=== PATIENT | female | born 1935 | race American Indian/Alaskan Native ===

== ENCOUNTER 2018-10-29 13:29 | Emergency (ER) | payer OTHER ==
--- NOTE | 2018-10-29 13:53 | PDOC ---
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 Patient's sister is at the bedside providing collateral history. About 1.5 years ago, patient was admitted to another hospital for UTI when a code was called as she had the sensation where she could not breathe. This instance was the first and only other time this has happened. The patient had a full workup including GI, and the cause was determined to be related to "something heart related." Denies recent medication changes. No airway swelling. Home health aide witnessed the event and noted patient was not in respiratory distress and did not look cyanotic. No vitals were taken at that time. Patient was laying in bed around 10am when it happened. Patient denies chest pain, nausea, or vomiting. She feels her symptom has improved but she does not feel back to normal. Denies medication allergies. Later on, patient reported that she felt somewhat weak today. Her home health aide and sister also state she seems weak. No fevers, chills, urinary symptoms, or abdominal pain. Past History - Past Medical History Allergies/Adverse Reactions: Allergies Allergy/AdvReac Type Severity Reaction Status Date / Time No Allergy Information Allergy Verified 10/29/18 14:03 Available Home Medications: Ambulatory Orders Aspirin 81 mg PO DAILY 02/12/16 Collagenase Clostridium Hist. [Santyl] 1 applic TP DAILY #90 applic 02/12/16 Levemir Vial 14 units SCJ HS 02/12/16 Metoprolol Succinate 1 tab PO DAILY 02/12/16 Plavix - 75 mg PO DAILY 02/12/16 Acetaminophen W/ Codeine #3 [Tylenol # 3 -] 1 tab PO Q6H #120 tablet MDD 4 05/06 Cephalexin [Keflex] 500 mg PO BID #13 capsule 10/29/18 Cardiac Disorders: Yes HTN: Yes Hypercholesterolemia: Yes - Surgical History Cardiac Surgery: Yes (3 vessel) - Suicide/Smoking/Psychosocial Hx Smoking History: Never smoked Review of Systems - Review of Systems Comments:: Constitutional: no fever, no chills HEENT: no dysphagia, no hemoptysis Cardiovascular: no chest pain, no palpitations Respiratory: no cough, +shortness of breath Gastrointestinal: no abdominal pain, no nausea Genitourinary: no dysuria, no frequency Musculoskeletal: no myalgia, no arthralgia Skin: no rash, no itching Neurologic: no headache, +weakness *Physical Exam - Physical Exam Comments: General: Awake, alert, and fully oriented, in no acute distress Head: No signs of trauma Eyes: EOMI, sclera anicteric ENT: Moist mucus membranes, no edema present, uvula midline, no foreign body or mass appreciated Neck: Normal ROM, supple Lungs: Lungs clear, Normal breath sounds Cardio: Regular rhythm, S1 and S2 present Abdomen: Soft, nontender Extremities: Normal range of motion, Distal pulses present SKIN: Warm, Dry, normal turgor Neurologic: Cranial nerves II through XII grossly intact. Normal speech, sensation, strength, coordination. Patient declined gait exam. 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 DDX including but not related to GERD, allergic reaction, angioedema, atypical presentation of cardiopulmonary disease, dysphagia from CVA No changes in foods recently No drug allergies Patient passed bedside sip test and has nonfocal neurologic exam Maalox/Pepcid/Viscous lidocaine 10/29/18 13:53 EKG: rate 60, QTc 454, NSR, no ST d/e CBC WBC 8.6 K/mm3 (4.0-10.0) 10/29/18 14:57 RBC 3.83 M/mm3 (3.60-5.2) 10/29/18 14:57 Hgb 10.7 GM/dL (10.7-15.3) 10/29/18 14:57 Hct 33.4 % (32.4-45.2) 10/29/18 14:57 MCV 87.3 fl (80-96) 10/29/18 14:57 MCH 27.8 pg (25.7-33.7) 10/29/18 14:57 MCHC 31.9 g/dl (32.0-36.0) L 10/29/18 14:57 RDW 16.0 % (11.6-15.6) H 10/29/18 14:57 Plt Count 242 K/MM3 (134-434) 10/29/18 14:57 MPV 9.4 fl (7.5-11.1) 10/29/18 14:57 Absolute Neuts (auto) 4.2 K/mm3 (1.5-8.0) 10/29/18 14:57 Neutrophils % 49.0 % (42.8-82.8) 10/29/18 14:57 Lymphocytes % 39.1 % (8-40) 10/29/18 14:57 Monocytes % 7.7 % (3.8-10.2) 10/29/18 14:57 Eosinophils % 3.4 % (0-4.5) 10/29/18 14:57 Basophils % 0.8 % (0-2.0) 10/29/18 14:57 Nucleated RBC % 0 % (0-0) 10/29/18 14:57 No anemia or leucocytosis CMP Sodium 134 mmol/L (136-145) L 10/29/18 14:57 Potassium 5.6 mmol/L (3.5-5.1) H 10/29/18 14:57 Chloride 103 mmol/L (98-107) 10/29/18 14:57 Carbon Dioxide 25 mmol/L (21-32) 10/29/18 14:57 Anion Gap 6 MMOL/L (8-16) L 10/29/18 14:57 BUN 32 mg/dL (7-18) H 10/29/18 14:57 Creatinine 1.0 mg/dL (0.55-1.3) 10/29/18 14:57 Creat Clearance w eGFR 53.08 (>60) 10/29/18 14:57 Random Glucose 83 mg/dL (74-106) 10/29/18 14:57 Calcium 9.1 mg/dL (8.5-10.1) 10/29/18 14:57 Total Bilirubin 0.3 mg/dL (0.2-1) 10/29/18 14:57 AST 26 U/L (15-37) 10/29/18 14:57 ALT 26 U/L (13-61) 10/29/18 14:57 Alkaline Phosphatase 111 U/L (45-117) 10/29/18 14:57 Troponin I < 0.02 ng/ml (0.00-0.05) 10/29/18 14:57 B-Natriuretic Peptide 109.6 pg/ml (5-450) 10/29/18 14:57 Total Protein 7.0 g/dl (6.4-8.2) 10/29/18 14:57 Albumin 3.0 g/dl (3.4-5.0) L 10/29/18 14:57 Tpn undetectable BNP normal CXR: "Patient is rotated to the left side. Sternal sutures are noted. Left lower lung zone obscured by the cardiac silhouette, soft tissues of the chest. No airspace opacities are seen in the left upper lung zone. Normal aeration of the right lung. No evidence of right pleural effusion. No pneumothorax is seen. Follow-up exam recommended. The visualized osseous structures appear intact. Thoracic spine scoliosis." CT Head: "No definite CT evidence of acute intracranial pathology. Right occipitotemporal cortical infarct which is probably chronic or late subacute. Correlate clinically. Small chronic right cerebellar infarcts inferiorly. Mild to moderate periventricular and subcortical chronic microvascular ischemic changes." Patient feels she is at her baseline UA pending CT report pending 10/29/18 18:37 UA positive for UTI with 2+LE, 36.5 WBC, and ~2978 bacteria Rocephin ordered Will send keflex to patient's pharmacy Though patient's sister is adamant that the patient's throat sensation is associated with a cardiac etiology, I have a high suspicion for a GI cause like GERD especially since patient is feeling back to normal after receiving pepcid/ maalox/viscous lidocaine. Patient without neurologic findings. 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 10/29/18 19:42 *DC/Admit/Observation/Transfer Diagnosis at time of Disposition: Weakness, Throat discomfort UTI (urinary tract infection) Qualifiers: Urinary tract infection type: site unspecified Hematuria presence: without hematuria Qualified Code(s): N39.0 - Urinary tract infection, site not specified - Discharge Dispostion Disposition: HOME Condition at time of disposition: Stable - Prescriptions Prescriptions: Cephalexin [Keflex] 500 mg PO BID #13 capsule - Referrals - Patient Instructions Printed Discharge Instructions: DI for Muscle Weakness Additional Instructions: You came to the emergency department after a strange sensation in your throat. CT imaging and blood work was within normal limits. Urinalysis shows you have a urinary tract infection Antibiotics prescription has been sent to your pharmacy. Follow-up with your primary care physician and your crochet machine operator this week to discuss this ED visit and to further evaluate your symptoms. . Call and make an appointment. Your workup is not complete until you do so. Return to the Emergency Department if you: have any high feves, chills, stop urinating, chest pain, palpitations, shortness of breath, severe headaches, changes in vision, focal numbness or weakness, any severe abdominal pain, any black, tarry stool, or any other new or concerning symptoms. If you think you have an emergency, call for medical help (dial [phone]) right away. - Post Discharge Activity
[2018-10-29 14:07] VITALS: BP 109/55; PULSE 66; TEMP 97.4; BMI 24.1
[2018-10-29] MEDS ORDERED: LIDOCAINE VISCOUS 2% ORAL/TOP 100 ML BOTTLE MM ONE (14:48)
[2018-10-29] MEDS ORDERED: MAG HYDROX/AL HYDROX/SIMETH -MYLANTA- ORAL SUSPENSION PO ONE (14:49)
[2018-10-29] MEDS ORDERED: FAMOTIDINE 20 MG/50 ML IVPB 20 MG/50 ML MG IVPB ONE ×2 (14:49→16:30)
--- NOTE | 2018-10-29 15:56 | PDOC ---
Documentation entered by Gema Lew SCRIBE, acting as scribe for Romario Cummings MD. Romario Cummings MD: This documentation has been prepared by the Vipin douglas Nirvannie, SCRIBE, under my direction and personally reviewed by me in its entirety. I confirm that the documentation accurately reflects all work, treatment, procedures, and medical decision making performed by me. Attending Attestation - Resident Resident Name: Edna Buckner - ED Attending Attestation I have performed the following: I have examined & evaluated the patient, The case was reviewed & discussed with the resident, I agree w/resident's findings & plan - HPI HPI: 10/29/18 15:19 CC: Choking HPI: The patient is a 83 year old female, with a significant past medical history of CVA (05/2018), HTN, DM, and HLD, who presents to the emergency department with, the sensation of something being stuck in her throat. She denies any vocal changes or difficulty eating/drinking. As per patient's sister, she believes it has to do with her breathing. Allergies: NKDA - Physicial Exam PE: 10/29/18 15:54 Vitals: Triage vital signs reviewed General Appearance: No acute distress, well nourished, well developed Head: Atraumatic Neck: Supple; No nuchal rigidity Chest Wall: Nontender Cardiac: Regular rate and rhythm, no murmurs, no rubs, no gallops Lungs: Clear to auscultation bilateral, good air movement bilaterally Abdomen: Soft, nondistended, normal bowel sounds, nontender to palpation Genitourinary: Rectal: Exam deferred Extremities: Full range of motion to all extremities, no cyanosis, clubbing, or edema Skin: Warm and dry, no rashes or lesions, no rash, no petechiae Neuro: AOX3; Cranial Nerves 2-12 grossly intact, Strength intact to all extremities, Sensation intact to all extremities, gait normal Psych: Normal mood, normal affect - Medical Decision Making 10/29/18 19:25 EKG performed at 1558 demonstrates normal sinus rhythm no ST elevations or T- wave inversions Troponin negative BNP unremarkable urinalysis positive We'll treat with ceftriaxone and discharged on Keflex Findings and need for follow-up and strict return instructions discussed with family.
[2018-10-29 16:07] LABS: BASO % 0.8 % (0-2.0); EOS % 3.4 % (0-4.5); HEMATOCRIT 33.4 % (32.4-45.2); HEMOGLOBIN 10.7 GM/dL (10.7-15.3); LYMPH % 39.1 % (8-40); MCH 27.8 pg (25.7-33.7); MCHC 31.9 g/dl (32.0-36.0); MEAN CELL VOLUME 87.3 fl (80-96); MEAN PLT VOLUME 9.4 fl (7.5-11.1); MONO % 7.7 % (3.8-10.2); PLATELET COUNT 242 K/MM3 (134-434); RBC 3.83 M/mm3 (3.60-5.2); WHITE BLOOD COUNT 8.6 K/mm3 (4.0-10.0)
[2018-10-29] MEDS ORDERED: MAG HYDROX/AL HYDROX/SIMETH 30 ML UNIT-DOSE CUP ONE (16:30)
[2018-10-29] MEDS ORDERED: LIDOCAINE VISCOUS 2% ORAL/TOP 20 ML UNIT-DOSE CUP ONE (16:30)
[2018-10-29 17:00] LABS: ALK PHOS 111 U/L (45-117); ANION GAP 6 MMOL/L (8-16); BILIRUBIN,TOTAL 0.3 mg/dL (0.2-1); BLOOD UREA NITROGEN 32 mg/dL (7-18); CALCIUM 9.1 mg/dL (8.5-10.1); CHLORIDE 103 mmol/L (98-107); CO2 25 mmol/L (21-32); GLUCOSE,RANDOM 83 mg/dL (74-106); N-TERMINAL BNP 109.6 pg/ml (5-450); POTASSIUM 5.6 mmol/L (3.5-5.1); SGOT/AST 26 U/L (15-37); SGPT/ALT 26 U/L (13-61); SODIUM 134 mmol/L (136-145)
[2018-10-29 18:31] LABS: PH,URINE 6.5 (5.0-8.0); URINE APPEARANCE CLEAR; URINE BILIRUBIN NEGATIVE (NEGATIVE); URINE COLOR YELLOW; URINE GLUCOSE (UA) NEGATIVE (NEGATIVE); URINE KETONE NEGATIVE (NEGATIVE); URINE LEUK ESTERASE 2+ (NEGATIVE); URINE NITRITE NEGATIVE (NEGATIVE); URINE PROTEIN NEGATIVE (NEGATIVE); URINE UROBILINOGEN 0.2 mg/dL (0.2-1.0)
[2018-10-29 18:58] LABS: EPI CELLS 1.1 /HPF (0-5/HPF); URINE BACTERIA 2978.8 /hpf (NEGATIVE); URINE CASTS NO SEEN /lpf (0-8); URINE RBC 0.7 /hpf (0-4); URINE WBC 36.5 /hpf (0-5)
[2018-10-29] MEDS ORDERED: CEFTRIAXONE 1,000 MG in DEXTROSE 5%-WATER - 50 ML IVPB ONE (19:12)
[2018-10-29] MEDS ORDERED: CEFTRIAXONE 1 GM/50 ML BAG ONE (19:55)
--- NOTE | 2018-10-30 14:23 | EKG ---
Test Reason : Blood Pressure : / mmHG Vent. Rate : 060 BPM Atrial Rate : 060 BPM P-R Int : 126 ms QRS Dur : 066 ms QT Int : 454 ms P-R-T Axes : 042 -03 047 degrees QTc Int : 454 ms POOR DATA QUALITY, INTERPRETATION MAY BE ADVERSELY AFFECTED NORMAL SINUS RHYTHM MINIMAL VOLTAGE CRITERIA FOR LVH, MAY BE NORMAL VARIANT CANNOT RULE OUT ANTERIOR INFARCT , AGE UNDETERMINED ABNORMAL ECG NO PREVIOUS ECGS AVAILABLE Confirmed by MD CATHY, ZHANE ([id number]) on 10/30/2018 2:22:52 PM Referred By: Confirmed By:ZHANE MORGAN MD
== END 2018-10-30 00:41 | disposition home or self-care (01) ==
LOC: JER 13:29
PROC: 3E03329 Introduction of Other Anti-infective into Peripheral Vein, Percutaneous Approach (ICD-10-PCS; principal; 2018-10-29)
PROC: 3E033GC Introduction of Other Therapeutic Substance into Peripheral Vein, Percutaneous Approach (ICD-10-PCS; 2018-10-29)
DX: N39.0 Urinary tract infection, site not specified (principal); I10 Essential (primary) hypertension; E78.5 Hyperlipidemia, unspecified; E11.9 Type 2 diabetes mellitus without complications; Z79.4 Long term (current) use of insulin; Z86.73 Personal history of transient ischemic attack (TIA), and cerebral infarction without residual deficits
CPT/HCPCS: 36415; 70450-TC; 71045-TC-FY; 80053; 81003; 83880; 84484; 85025; 87086; 87186; 93005; 93010; 96365; 96367; 99282-25